=== PATIENT | male | born 1965 | race Hispanic/Latino ===

== ENCOUNTER 2019-02-11 13:55 | Emergency (ER) | payer OTHER ==
[~2019-02-11] VITALS: Ht 167.6 cm; Wt 90.7 kg
[~2019-02-11 13:55] MED LIST: LISINOPRIL10 MG PO
[2019-02-11 15:40] VITALS: BP 131/87
[2019-02-11] MEDS: VALACYCLOVIR HCL 500 MG TAB PO SCH (16:06)
== END 2019-02-11 16:07 | disposition home or self-care (01) ==
LOC: ER 13:55
DX: B02.8 Zoster with other complications (principal)
CPT/HCPCS: 99282

== ENCOUNTER 2019-09-01 12:03 | Emergency (ER) | payer OTHER ==
[~2019-09-01] VITALS: Ht 167.6 cm; Wt 90.7 kg
[2019-09-01] MEDS ORDERED: PREDNISONE20 MG PO (14:39)
--- NOTE | 2019-09-01 15:02 | Diagnostic Imaging Report ---
EXAMINATION: ELBOW 3 VIEW LT - HOPD INDICATION: Trauma COMPARISON: None FINDINGS: Partially visualized distal humerus hardware. No acute fracture or dislocation. Alignment is anatomic. No elbow joint effusion. Mild triceps enthesopathy. Soft tissues appear unremarkable. IMPRESSION: No acute osseous injury. Signed by: Mauricio Hanna MD on 09/01/2019 2:59 PM
== END 2019-09-01 15:03 | disposition home or self-care (01) ==
LOC: FSED 12:03
DX: S53.432A Radial collateral ligament sprain of left elbow, initial encounter (principal); X50.0XXA Overexertion from strenuous movement or load, initial encounter; Y99.0 Civilian activity done for income or pay
CPT/HCPCS: 99283

== ENCOUNTER 2023-07-29 20:10 | Emergency (ER) | payer OTHER ==
[~2023-07-29] VITALS: Ht 167.6 cm; Wt 90.7 kg
[~2023-07-29 20:10] MED LIST changes: +PREDNISONE20 MG PO
[2023-07-29] MEDS ORDERED: MEDROL4 M2 PO (21:39)
[2023-07-29] MEDS ORDERED: ORPHENADRINE C100 MG PO (21:39)
[2023-07-29] MEDS: KETOROLAC TROMETHAMINE 60 MG/2 ML VIAL IM ONE (22:01)
[2023-07-29] MEDS: ORPHENADRINE CITRATE 30 MG/ML VIAL IM ONE (22:01)
[2023-07-29 22:33] VITALS: BP 159/104; O2SAT 100
== END 2023-07-29 22:25 | disposition home or self-care (01) ==
LOC: ER 20:22
DX: S16.1XXA Strain of muscle, fascia and tendon at neck level, initial encounter (principal); G44.209 Tension-type headache, unspecified, not intractable; I10 Essential (primary) hypertension; E78.5 Hyperlipidemia, unspecified; F17.210 Nicotine dependence, cigarettes, uncomplicated
CPT/HCPCS: 99283; J1885; J2360